=== PATIENT | male | born 1935 | race Caucasian/White ===

== ENCOUNTER 2016-06-02 18:22 | Emergency (ER) | payer MEDICARE ==
[2016-06-02 18:29] VITALS: TEMP 97.8; BMI 30.4
[2016-06-02] MEDS ORDERED: TRAMADOL HCL 50 MG TAB PO ONE (19:43)
--- NOTE | 2016-06-02 20:11 | DIRPT ---
CLINICAL DATA: Left axillary rib pain status post fall. EXAM: BILATERAL RIBS AND CHEST - 4+ VIEW COMPARISON: None. FINDINGS: There is a displaced left posterior lateral seventh rib fracture. No other fracture or bone lesions are seen involving the ribs. There is no evidence of pneumothorax or pleural effusion. Both lungs are clear. Heart size and mediastinal contours are within normal limits. The aorta is torturous and contains atherosclerotic calcifications at the arch. IMPRESSION: Minimally displaced left posterior seventh rib fracture. No evidence of pneumothorax. Atherosclerotic disease of the aorta. Electronically Signed By: Lynsey Loomis M.D. On: 06/02/2016 20:09
--- NOTE | 2016-06-02 20:15 | EDPRACDOC ---
- General Chief Complaint: Fall Stated Complaint: FALL/LFT RIB PAIN Time Seen by Provider: 06/02/16 19:40 Information Source: Patient Exam Limitations: No Limitations - History of Present Illness Onset: TODAY HPI: PT STATES HE SLIPPED AND FELL TODAY LANDING ON HIS LEFT SIDE. STATES HE HAS LEFT SIDED RIB PAIN. DENIES SHOB, LOC OR ANY OTHER INJURIES. Pain Severity: Reports: Mild, Moderate Injuries/Pain Location: Reports: chest Reason for Fall: Reports: lost balance Loss of Consciousness: no loss of consciousness Modifying Factors: improves with: immobilization Associated Symptoms (Fall): Reports: denies symptoms Allergies/Adverse Reactions: Allergies No Known Allergies Allergy (Verified 06/02/16 18:30) Home Medications: Ambulatory Orders Tramadol HCl [Ultram] 100 mg PO Q6H #20 tab 06/02/16 Unk Pain Reliever 3 tab PO .PRN 06/02/16 ED Past Medical History - History Reviewed Yes Nurses notes reviewed and agree except as marked EDM Review of Systems - Review of Systems ROS Negative Except as Marked: Yes All systems reviewed and were negative except as marked - Physical Exam Constitutional: Alert (Awake), No apparent distress Oriented to: Time, Person, Place Last recorded Vital Signs: Last Vital Signs Temp 97.8 F 06/02/16 18:26 Pulse 98 06/02/16 19:58 Resp 18 06/02/16 19:58 BP 188/112 H 06/02/16 19:58 Pulse Ox 95 06/02/16 19:58 Oxygen Pulse Oxygen Saturation 95 O2 Device Room Air Oxygen Flow Rate Fraction of Inspired Oxygen ( FIO2) - HEENT Head: Normal ( normocephalic) Eye Exam: Normal (PERRL, EOMI, Sclera white) Oropharynx: Normal (Pharynx:Moist without exudate,Gums-no swelling) Nose: No Symptoms Reported (septum midline) Neck: Normal (FROM, trachea at midline) - Respiratory/Cardiovascular Respiratory: Normal - CTA (BBS clear to auscultation without adventitious sounds ) Cardiovascular: Normal (RRR without murmur, gallop or rub) Respiratory/Cardiovascular Comment: PAIN WITH PALPATION TO LEFT RIB AREA. - GI Auscultation: Normal (NABS) Palpation: Normal (Soft,No rebound or guarding, non distended) Tenderness: Non tender Bartholomew's Sign: Negative Rectal Exam: Deferred - Musculoskeletal Back: Normal (Non-Tender) Extremities: Normal (Normal tone, Pulses 2+ No cyanosis or edema, FROM) - Integumentary Skin: Normal, Warm, Dry Lymphatics: Normal (no adenopathy) - Neurologic Memory Impaired: Normal Motor Function: Normal (Normal tone, Pulses 2+ No cyanosis or edema, FROM) Cranial Nerve: Normal (CN II-X11 intact sensation, strength 5/5) Cerebellar: Normal Mood Description: Normal Perception: Normal ED Injury/Fall Exam - Physical Exam Head Injury: no evidence of injury Extremity Exam: no evidence of injury Skin: Normal, Warm, Dry - Cornelius Coma Score Best Eye Response (Deneen): (4) open spontaneously Best Verbal Response (Cornelius): (5) oriented Best Motor Response (Deneen): (6) obeys commands Deneen Total: 15 - Differential Diagnosis Fall, Fracture Decision Time to Discharge: 20:15 - Departure Disposition: Home Condition: Stable Final Diagnosis: Accidental fall Left rib fracture Qualifiers: Encounter type: initial encounter Rib fracture type: single rib Fracture type: closed Qualified Code(s): S22.32XA - Fracture of one rib, left side, initial encounter for closed fracture Instructions: RICE: Routine Care for Injuries, Rib Fracture (ED), Fall Prevention for Older Adults (ED) Education/Counseling Given To: Patient Education/Counseling Given Regarding: Diagnosis, Treatment, Prognosis, Follow Up Referrals: Anu Nowak [facility] [Primary Care Provider] - One Week Prescriptions: Tramadol HCl [Ultram] 100 mg PO Q6H #20 tab Additional Instructions: ICE TO THE AREA ~ 20 MINS ON THEN 20 MINS OFF. FOLLOW UP WITH PCP NEXT WEEK. RETURN TO THE ED FOR WORSENING SYMPTOMS OR CONCERNS
[2016-06-02 20:57] VITALS: BP 177/107; PULSE 94
[2016-06-02] MEDS ORDERED: OXYCODONE HCL 5 MG TABLET PO ONE (21:01)
== END 2016-06-02 21:30 | disposition home or self-care (01) ==
LOC: ED 18:22
DX: S22.32XA Fracture of one rib, left side, initial encounter for closed fracture (principal); W01.0XXA Fall on same level from slipping, tripping and stumbling without subsequent striking against object, initial encounter; Y93.9 Activity, unspecified
CPT/HCPCS: 71111; 99283; A9270; J3490